=== PATIENT | male | born 1945 | race Caucasian/White ===

== ENCOUNTER 2017-02-03 10:33 | Day surgery (SDC) | payer MEDICARE ==
[2017-02-03] MEDS ORDERED: MIDAZOLAM HCL 2MG/2ML VIAL IV ONE (14:00)
[2017-02-03] MEDS ORDERED: PROPOFOL 10 MG/ML VIAL IV ONE (14:00)
[2017-02-03] MEDS ORDERED: LIDOCAINE 2% MDV (20MG/ML) 20ML VIAL IV ONE (14:00)
--- NOTE | 2017-02-07 07:30 | Operative Note ---
DATE OF SURGERY: OPERATION: COLONOSCOPY with cold forceps and cold snare polypectomy. PREOPERATIVE DIAGNOSIS: Family history of colon cancer. POSTOPERATIVE DIAGNOSES: 1. Multiple colon polyps. 2. Colonic diverticulosis. PROCEDURE: After informed consent was obtained from the patient, he was placed in the left lateral decubitus position in the endoscopy suite, sedated and monitored by the department of anesthesia. Digital rectal exam was unremarkable. A well-lubricated XOC871 colonoscope was inserted into the rectum and advanced to the cecum. Preparation quality was good. The ileocecal valve and appendiceal orifice were identified. There was diverticula throughout the length of the colon including the right colon/ascending colon. There was a diminutive cecal polyp removed with a cold forceps. The ascending colon revealed 2 polyps which were quite sessile removed in piecemeal fashion with a cold snare. The polyps range in size from 5-7 mm. The remainder of the ascending colon and transverse colon and descending colon were unremarkable. There were two 4-5 mm sessile sigmoid colon polyps which were removed with a cold snare with minimal bleeding noted. There were colonic diverticula noted in this area as well. The rectum was unremarkable in forward and in J-turn views. The endoscope was straightened, the rectal ampulla deflated, and the endoscope was removed. RECOMMENDATIONS: I would suggest the patient follow a high-fiber diet. He will require repeat exam in 3-5 years pending tissue histology. As always, thank you for allowing me to participate in the healthcare of your patients. Nabil Bradley DO CC: SELVIN RAMESH MD, FACP [facility]
== END 2017-02-03 13:15 | disposition home or self-care (01) ==
LOC: HOP 10:33
PROVIDERS: ATTEND Internal Medicine Gastroenterology
DX: Z12.11 Encounter for screening for malignant neoplasm of colon (principal); Z80.0 Family history of malignant neoplasm of digestive organs; D12.2 Benign neoplasm of ascending colon; K63.5 Polyp of colon; I10 Essential (primary) hypertension; E78.00 Pure hypercholesterolemia, unspecified; E11.9 Type 2 diabetes mellitus without complications

== ENCOUNTER 2018-06-08 04:12 | Emergency (ER) | payer MEDICARE ==
--- NOTE | 2018-06-08 04:32 | Emergency Department Record ---
History of Present Illness - General Chief complaint: Flank Pain Stated complaint: R FLANK PAIN Time Seen by Provider: 06/08/18 04:25 Source: Patient, Family Mode of Arrival: Ambulatory Limitations: No limitations - History of Present Illness Initial comments: 72 yo male presents with 2-3 days of right sided pain that comes and goes. The pain started in the back now radiates around the side to the groin. He has had some nausea and vomiting at times. He has had 2-3 loose stools a day. No fever. No rash. He has had prior hernia surgery about 3 years ago. No blood in the stool or vomit. He denies a history of renal stones. Dr Saldaña is his PCP. Onset/Timin -: Days(s) Location: Right flank Radiation: RLQ Severity scale (1-10): 8 Consistency: Intermittent Improves with: None Worsens with: None Reports: Nausea/vomiting - Related Data Home Medications Medication Instructions Recorded Confirmed Last Taken Tamsulosin HCl [Flomax] 0.4 mg PO DAILY 06/08/18 06/08/18 Unknown Previous Rx's Medication Instructions Recorded Hydrocodone/Acetaminophen [[place] 1 each PO Q6H #12 tablet 06/08/18 5-325 Tablet] Allergies Allergy/AdvReac Type Severity Reaction Status Date / Time No Known Drug Allergies Allergy Unknown Verified 01/18/17 08:44 [NO KNOWN DRUG ALLERGIES] Travel Screening - Travel/Exposure Within Last 30 Days Have you traveled within the last 30 days?: No - Travel Symptoms Symptom Screening: None Review of Systems Constitutional: Denies: Chills, Fever, Weakness Eyes: Denies: Eye discharge ENT: Denies: Congestion, Throat pain Respiratory: Denies: Cough, Dyspnea Cardiovascular: Denies: Chest pain, Palpitations, Syncope Endocrine: Denies: Fatigue Gastrointestinal: Reports: Abdominal pain, Diarrhea, Nausea, Vomiting. Denies: Constipation, Hematemesis, Hematochezia, Melena Genitourinary: Denies: Dysuria, Frequency, Hematuria Musculoskeletal: Reports: Back pain. Denies: Arthralgia, Myalgia Skin: Denies: Bruising, Change in color, Rash Neurological: Denies: Headache, Numbness, Weakness Psychiatric: Denies: Anxiety Hematological/Lymphatic: Denies: Blood Clots, Easy bleeding, Easy bruising, Swollen glands Past Medical History - SOCIAL HISTORY Smoking Status: Former smoker - RESPIRATORY Hx Respiratory Disorders: No - CARDIOVASCULAR Hx Cardio Disorders: Yes Hx Hypertension: Yes Comment:: HIGH CHOLESTEROL - NEURO Hx Neuro Disorders: No - GI Hx GI Disorders: Yes Hx Reflux: Yes Hx of Polyps: Yes - Hx Genitourinary Disorders: No - ENDOCRINE Hx Endocrine Disorders: Yes Hx Diabetes: Yes - MUSCULOSKELETAL Hx Musculoskeletal Disorders: No - PSYCH Hx Psych Problems: No - HEMATOLOGY/ONCOLOGY Hx Hematology/Oncology Disorders: No Family Medical History Any Significant Family History?: Yes Hx Cancer: Grandparents Physical Exam - General General Appearance: Alert, Oriented x3, Cooperative, No acute distress Limitations: No limitations - Head Head exam: Normal inspection - Eye Eye exam: Normal appearance, PERRL. negative: Conjunctival injection - ENT ENT exam: Normal exam, Mucous membranes moist Ear exam: Normal external inspection Nasal Exam: Normal inspection Mouth exam: Normal external inspection - Neck Neck exam: Normal inspection, Full ROM. negative: Tenderness - Respiratory Respiratory exam: Normal lung sounds bilaterally. negative: Respiratory distress - Cardiovascular Cardiovascular Exam: Regular rate, Normal rhythm, Normal heart sounds - GI/Abdominal GI/Abdominal exam: Soft, Tenderness (tender to palpation right flank to RLQ). negative: Distended, Guarding, Rebound, Rigid - Rectal Rectal exam: Deferred - exam: Deferred - Extremities Extremities exam: Normal inspection, Full ROM, Normal capillary refill. negative: Tenderness - Back Back exam: Reports: CVA tenderness (R), Full ROM. Denies: CVA tenderness (L) - Neurological Neurological exam: Alert, Oriented X3 - Psychiatric Psychiatric exam: Normal affect, Normal mood Course Vital Signs 06/08/18 04:16 Temperature 97.6 F Pulse Rate 76 Respiratory 18 Rate Blood Pressure 144/99 Pulse Ox 99 - Reevaluation(s) Reevaluation #1: 06/08/18 04:50 No acute changes on the CBC 06/08/18 05:06 The CMP was reviewed. CR is 1.3 with GFR of 58 No other changes 06/08/18 05:40 The UA was noted to have blood, Nitrite and LE negative 06/08/18 05:55 4mm obstructing stone in the mid right ureter. Mild to Moderate HN. Diverticulosis without Diverticulitis. 06/08/18 06:05 The patient is pain free. We discussed renal stones, home care and a urology referral. We discussed reasons to return immediately to the ED Medical Decision Making - Lab Data Result diagrams: 06/08/18 04:27 07 04:27 Disposition Disposition: Discharge Clinical Impression: Renal colic on right side Disposition: Home, Self-Care Condition: (1) Good Instructions: Renal Colic (ED) Additional Instructions: Take the prescriptions provided today as directed. Call your family doctor Return to ED if your symptoms worsen or if you have any new concerns. Call to schedule the next available appointment for a recheck. Review the final Emergency Record and test results with your doctor on follow up You have been referred to the urology specialty clinic at [facility] You will be called with an appointment time. Prescriptions: Hydrocodone/Acetaminophen [[place] 5-325 Tablet] 1 each PO Q6H #12 tablet Referrals: RONALD FERREIRA M.D. [MEDICAL DOCTOR] - [facility] Specialty Clin[facility] [Provider Group] Forms: Patient Portal Access Time of Disposition: 06:08 Quality - Quality Measures Quality Measures: N/A - Blood Pressure Screening Does Patient Have Any of the Following: Active Dx of HTN Blood Pressure Classification: Pre-Hypertensive BP Reading Systolic Measurement: 126 Diastolic Measurement: 72 Screening for High Blood Pressure: Patient Exclusion, Hx of HTN [[id number]]
[2018-06-08] MEDS ORDERED: MORPHINE SULFATE 10 MG/ML VIAL IVP ONE ×2 (04:33→05:11)
[2018-06-08] MEDS ORDERED: ONDANSETRON HCL IV 4 MG/2 ML VIAL IVP ONE (04:33)
[2018-06-08] MEDS ORDERED: 0.9 % SODIUM CHLORIDE 1000ML 1,000 ML IV ONE (04:33)
[2018-06-08 04:40] LABS: HEMATOCRIT 44.2 % (42.0-52.0); HEMOGLOBIN 15.3 gm/dl (14.0-18.0); MEAN CELL VOLUME 88.6 fl (81-97); MEAN CORPUSCULAR HEMOGLOBIN 30.7 pg (27-33); MEAN CORPUSCULAR HGB CONC 34.6 g/dl (32-36); PLATELET COUNT 270 K/uL (130-400); RED BLOOD COUNT 4.99 M/uL (4.40-5.70); RED CELL DISTRIBUTION WIDTH 13.1 % (11.5-14.5); WHITE BLOOD COUNT W/O DIFF 9.5 K/uL (4.2-12.2)
[2018-06-08 04:49] LABS: BILIRUBIN,TOTAL 0.5 mg/dL (0.2-1.0); CREATININE 1.3 mg/dL (0.7-1.2)
[2018-06-08 04:50] LABS: TOTAL PROTEIN 7.1 g/dL (6.6-8.7)
[2018-06-08 04:55] LABS: ALB/GLOB RATIO 1.6 (1.1-1.8); ALBUMIN 4.4 g/dL (4.0-5.0)
[2018-06-08] MEDS ORDERED: ACETAMINOPHEN 1,000 MG/100 ML BTL IVPB ONE (05:11)
[2018-06-08 05:28] LABS: URINE APPEARANCE CLEAR; URINE BILIRUBIN NEGATIVE (NEGATIVE); URINE BLOOD LARGE (NEGATIVE); URINE COLOR YELLOW; URINE KETONE 15 mg/dL (NEGATIVE); URINE LEUKOCYTE ESTERASE NEGATIVE (NEGATIVE); URINE NITRITE NEGATIVE (NEGATIVE); URINE PROTEIN TRACE (NEGATIVE); URINE UROBILINOGEN 0.2 E.U./dL (0.20 - 1.00)
[2018-06-08 05:44] LABS: URINE BACTERIA NONE SEEN; URINE EPITHELIAL CELLS 0 - 2 (FEW); URINE MUCUS LIGHT; URINE RBC 21 - 35 (NONE SEEN); URINE WBC 0 - 2 (0-2/hpf)
--- NOTE | 2018-06-08 15:14 | CT SCAN REPORT ---
EXAM: CT OF THE ABDOMEN AND PELVIS WITHOUT CONTRAST HISTORY: RIGHT FLANK PAIN. TECHNIQUE: Sequential axial images were obtained from the diaphragms through the ischiorectal fossa without intravenous or oral contrast administration. FINDINGS: There is a 4 mm obstructing calculus in the mid right ureter. This produces moderate right hydronephrosis. There is an additional nonobstructing calculus in the right kidney. There is mild perinephric fat stranding. There is a small sliding type hiatal hernia. The nonopacified liver appears normal. No abnormality within the gallbladder. The pancreas and spleen appear normal. The adrenal glands appear normal. The small bowel appears normal. There is pancolonic diverticulosis without evidence of diverticulitis. No retroperitoneal lymphadenopathy. The urinary bladder appears normal. There is calcification within the central prostate gland. There is a fat containing left inguinal hernia. There is osteopenia. Mild multilevel degenerative change of the lumbar spine. IMPRESSION: 1. 4 MM OBSTRUCTING CALCULUS IN THE RIGHT MID URETER. THERE IS MODERATE RIGHT HYDRONEPHROSIS AND PERINEPHRIC FAT STRANDING. ADDITIONAL NONOBSTRUCTING CALCULUS IN THE LEFT KIDNEY. 2. SMALL SLIDING TYPE HIATAL HERNIA. 3. COLONIC DIVERTICULOSIS WITHOUT EVIDENCE OF DIVERTICULITIS. 4. OSTEOPENIA WITH MULTILEVEL DEGENERATIVE CHANGE. [facility]OB [facility]BER: [id number] [facility]
== END 2018-06-08 06:18 | disposition home or self-care (01) ==
LOC: ER 04:12
DX: N13.2 Hydronephrosis with renal and ureteral calculous obstruction (principal); R11.2 Nausea with vomiting, unspecified; I10 Essential (primary) hypertension; E11.9 Type 2 diabetes mellitus without complications; Z87.891 Personal history of nicotine dependence
CPT/HCPCS: 99284 ×2; 96376; 96365; 96375; 96361; 83690; 80053; 81001; 85027; 74176; J2405; J2270; J7030